=== PATIENT | female | born 1985 | race Caucasian/White ===

== ENCOUNTER 2021-03-31 14:30 | Inpatient (IN) ==
[2021-03-31 15:23] LABS: Basophils % 0.5 %; Eosinophils # 0.2 K/mcL (0.0-0.6); Eosinophils % 2.3 %; Hemoglobin 14.2 g/dL (11.5-15.4); Immature Granulocytes % 0.3 % (0-4); Lymphocytes # 1.9 K/mcL (0.6-4.6); Lymphocytes % 23.9 %; Mean Corpuscular HGB Conc 34.6 g/dL (31.6-35.5); Mean Corpuscular Hemoglobin 31.4 pg (28.0-33.3); Mean Corpuscular Volume 90.7 fL (83.0-100.0); Mean Platelet Volume 9.8 fL (9.4-12.4); Monocytes # 0.6 K/mcL (0.0-1.3); Neutrophils # 5.1 K/mcL (1.6-8.9); Platelet Count 341 K/mcL (140-400); Red Blood Count 4.52 M/mcL (3.82-4.97); Red Cell Distribution Width 12.5 % (11.5-14.5); White Blood Count 7.8 K/mcL (4.3-11.1)
[2021-03-31 15:23] LABS: Bilirubin,Urine Negative (Negative); Blood,Urine Negative (Negative); Clarity,Urine Clear (Clear); Color,Urine Colorless (Yellow); Glucose,Urine (UA) Normal (Normal); Ketones,Urine Negative (Negative); Leukocyte Esterase,Urine Trace (Negative); Mucus,Urine Few per lpf (None-Few); Nitrite,Urine Negative (Negative); PH,Urine 7.5 pH Units (5.0-8.0); Protein,Urine Negative (Neg-Trace); RBC,Urine 0-3 per hpf (0-3); Specific Gravity,Urine 1.013 (1.010-1.025); Squamous Epithelial Cell,Urine Few per hpf (None-Few); Urobilinogen,Urine Normal (Normal); WBC,Urine 0-3 per hpf (0-3)
[2021-03-31 15:43] LABS: Acetaminophen < 10 mcg/mL (10-20); BUN/Creatinine Ratio 20 (6-26); Blood Urea Nitrogen 11 mg/dL (6-20); Calcium 9.9 mg/dL (8.6-10.3); Carbon Dioxide 29 mEq/L (23-29); Chloride 100 mEq/L (98-107); Chol/HDL Ratio 6.8 (0-4.9); Cholesterol 225 mg/dL (< 200); Ethanol < 10 mg/dL (Less than 10); Glucose 111 mg/dL (70-105); HDL Cholesterol 33 mg/dL (40-59); Osmolality,Calculated 282 (280-300); Potassium 4.3 mEq/L (3.5-5.1); Salicylate < 2.5 mg/dL (15.0-30.0); Sodium 136 mEq/L (136-145); Triglycerides 525 mg/dL (< 150); eGFR For African Americans > 60 (> 60); eGFR For Non-African Americans > 60 (> 60)
[2021-03-31 16:05] LABS: Amphetamine Screen,Urine Negative ng/mL (Cutoff=1000); Barbiturate Screen,Urine Negative ng/mL (Cutoff=200); Benzodiazepines Screen,Urine Negative ng/mL (Cutoff=200); Cannabinoid Screen,Urine Positive ng/mL (Cutoff = 50); Cocaine Screen,Urine Negative ng/mL (Cutoff= 300); Opiate Screen,Urine Negative ng/mL (Cutoff=300); Phencyclidine Screen,Urine Negative ng/mL (Cutoff=25)
[2021-03-31 17:19] LABS: Estimated Average Glucose 137 mg/dl; Hemoglobin A1C 6.4 %
[2021-03-31] MEDS ORDERED: Haloperidol Lactate 5 MG/ML VIAL IM PRN (18:47)
[2021-03-31] MEDS ORDERED: *HR* LORazepam 1 MG TABLET PO PRN (18:47)
[2021-03-31] MEDS ORDERED: haloperidoL 5 MG TABLET PO PRN (18:47)
[2021-03-31] MEDS ORDERED: hydrOXYzine pamoate 25 MG CAPSULE PO PRN (18:47)
[2021-03-31] MEDS ORDERED: *HR* LORazepam 2 MG/ML VIAL IM PRN (18:47)
[2021-03-31] MEDS: Ibuprofen 800 MG TABLET PO SCH (21:43)
[2021-03-31] MEDS: Mirtazapine 15 MG TABLET PO SCH (21:44)
[2021-03-31] MEDS: traZODone 50 MG TABLET PO PRN (21:44)
[2021-03-31] MEDS: carBAMazepine 200 MG TABLET PO SCH (21:44)
[2021-04-01] MEDS: FLUoxetine 20 MG CAPSULE PO SCH (09:51)
[2021-04-01] MEDS: Ibuprofen 800 MG TABLET PO SCH ×3 (09:52→20:43)
[2021-04-01] MEDS: Metoprolol XL (24 HR) Succ 50 MG TAB.ER.24H PO SCH (09:52)
[2021-04-01] MEDS: carBAMazepine 200 MG TABLET PO SCH (09:52)
[2021-04-01] MEDS: Mirtazapine 15 MG TABLET PO SCH (20:44)
[2021-04-01] MEDS ORDERED: Lithium Carbonate ER 450 MG TABLET.ER PO SCH (21:00)
[2021-04-01] MEDS ORDERED: Mag Hydrox/Al Hydrox/Simeth 30 ML UDC PO PRN (21:07)
[2021-04-02] MEDS ORDERED: CarBAMazepine 100 MG TABLET PO SCH (09:00)
[2021-04-02] MEDS: *HR* Metformin 500 MG TABLET PO SCH (09:18)
[2021-04-02] MEDS: Metoprolol XL (24 HR) Succ 50 MG TAB.ER.24H PO SCH (09:18)
[2021-04-02] MEDS: Ibuprofen 800 MG TABLET PO SCH ×3 (09:18→20:39)
[2021-04-02] MEDS: FLUoxetine 20 MG CAPSULE PO SCH (09:19)
[2021-04-02] MEDS: traZODone 50 MG TABLET PO PRN (20:40)
[2021-04-02] MEDS: Mirtazapine 15 MG TABLET PO SCH (20:40)
[2021-04-02] MEDS ORDERED: Lithium Carbonate ER 450 MG TABLET.ER PO SCH (21:00)
[2021-04-03] MEDS: FLUoxetine 20 MG CAPSULE PO SCH (10:07)
[2021-04-03] MEDS: *HR* Metformin 500 MG TABLET PO SCH (10:07)
[2021-04-03] MEDS: Metoprolol XL (24 HR) Succ 50 MG TAB.ER.24H PO SCH (10:08)
[2021-04-03] MEDS: Ibuprofen 800 MG TABLET PO SCH (10:08)
[2021-04-03 10:44] VITALS: BP 121/80
== END 2021-04-03 12:55 | disposition home or self-care (01) | DRG 753 ==
LOC: EMEROOARM 14:30 → 1ANU 18:46
PROVIDERS: ADMIT Psychiatry & Neurology Forensic Psychiatry; ATTEND Psychiatry & Neurology Forensic Psychiatry